=== PATIENT | male | born 1995 | race Caucasian/White ===

== ENCOUNTER 2021-08-27 14:42 | Outpatient (CLI) | payer OTHER ==
[2021-08-27] MEDS ORDERED: ALBUTEROL 1 PUFF INH STA (16:16)
== END 2021-08-27 14:43 | disposition home or self-care (01) ==
LOC: RT 14:42
PROVIDERS: ATTEND Registered Nurse
DX: J45.909 Unspecified asthma, uncomplicated (principal)
CPT/HCPCS: 94060; 94729